=== PATIENT | female | born 1970 | race American Indian/Alaskan Native ===

== ENCOUNTER 2019-03-04 03:14 | Emergency (ER) | payer SELFPAY ==
[2019-03-04] MEDS ORDERED: NACL 0.9% 1000 ML 1,000 ML ONE (03:24)
[2019-03-04] MEDS ORDERED: NACL 0.9% 1000 ML 1,000 ML IV ONE (03:26)
--- NOTE | 2019-03-04 03:27 | Emergency Department Report ---
HPI - General Time Seen by Provider: 03/04/19 03:22 - HPI HPI: Room 1 The patient is a 48-year-old female presenting with a chief complaint of SVT. The patient has a history of SVTs and states just prior to arrival she developed palpitations associated shortness of breath. Patient denies chest pain. The patient states she is not taking any medications Location: [See above] Duration: [See above] Quality: [See above] Severity: [See above] Timing: [See above] Context: [See above] Modifying factors: [See above] Associated signs and symptoms: [see above] ED Past Medical Hx - Past Medical History Additional medical history: SVT - Surgical History Past Surgical History?: No - Family History Family history: no significant - Social History Smoking Status: Never Smoker Substance Use Type: None (denies illicit drug use) ED Review of Systems ROS: Stated complaint: SVT Other details as noted in HPI Constitutional: no symptoms reported Eyes: denies: eye pain ENT: denies: throat pain Respiratory: shortness of breath Cardiovascular: palpitations. denies: chest pain Endocrine: no symptoms reported Gastrointestinal: denies: abdominal pain Genitourinary: denies: dysuria Musculoskeletal: denies: back pain Neurological: denies: headache Physical Exam - Physical Exam Physical Exam: GENERAL: The patient is well-developed well-nourished female lying on stretcher not appearing to be in acute distress. [] HEENT: Normocephalic. Atraumatic. Extraocular motions are intact. Patient has moist mucous membranes. NECK: Supple. Trachea midline CHEST/LUNGS: Clear to auscultation. There is no respiratory distress noted. HEART/CARDIOVASCULAR: Regular. There is tachycardia. There is no gallop rub or murmur. ABDOMEN: Abdomen is soft, nontender. Patient has normal bowel sounds. There is no abdominal distention. SKIN: There is no rash. There is no edema. There is no diaphoresis. NEURO: The patient is awake, alert, and oriented. The patient is cooperative. The patient has normal speech MUSCULOSKELETAL: There is no evidence of acute injury. ED Medical Decision Making - Lab Data Result diagrams: 03/04/19 03:53 03/04/19 03:53 Laboratory Tests 03/04/19 03/04/19 03/04/19 03:53 03:53 03:53 WBC 7.2 RBC 3.99 Hgb 11.5 Hct 32.6 MCV 82 MCH 29 MCHC 35 H RDW 20.2 H Plt Count 304 Lymph % (Auto) 28.6 Ada % (Auto) 8.7 H Eos % (Auto) 0.5 Baso % (Auto) 1.0 Lymph # 2.1 Ada # 0.6 Eos # 0.0 Baso # 0.1 Seg Neutrophils % 61.2 Seg Neutrophils # 4.4 Sodium 139 Potassium 3.8 Chloride 102.5 Carbon Dioxide 21 L Anion Gap 19 BUN 14 Creatinine 0.5 L Estimated GFR > 60 BUN/Creatinine Ratio 28 Glucose 134 H Calcium 9.3 Magnesium 1.90 Total Creatine Kinase 89 CK-MB (CK-2) 1.7 CK-MB (CK-2) Rel Index 1.9 TSH 2.300 Free T4 1.13 HCG, Qual 03/04/19 03:53 WBC RBC Hgb Hct MCV MCH MCHC RDW Plt Count Lymph % (Auto) Ada % (Auto) Eos % (Auto) Baso % (Auto) Lymph # Ada # Eos # Baso # Seg Neutrophils % Seg Neutrophils # Sodium Potassium Chloride Carbon Dioxide Anion Gap BUN Creatinine Estimated GFR BUN/Creatinine Ratio Glucose Calcium Magnesium Total Creatine Kinase CK-MB (CK-2) CK-MB (CK-2) Rel Index TSH Free T4 HCG, Qual Negative - EKG Data -: EKG Interpreted by Me Rate: tachycardia (SVT at 180 bpm) - EKG Data When compared to previous EKG there are: previous EKG unavailable Interpretation: other (EKG #2 sinus tachycardia at 102 bpm. No ischemic changes seen) - Differential Diagnosis SVT Critical care attestation.: If time is entered above; I have spent that time in minutes in the direct care of this critically ill patient, excluding procedure time. ED Disposition Clinical Impression: SVT (supraventricular tachycardia) Disposition: DC-01 TO HOME OR SELFCARE Is pt being admited?: No Does the pt Need Aspirin: No Condition: Stable Instructions: Supraventricular Tachycardia (ED) Additional Instructions: Return to the emergency department should you develop worsening symptoms, inability to tolerate food or liquids, high fever or any other concerns Referrals: KENIA CARLIN MD [Staff Physician] - 3-5 Days (Dr. Carlin is a refrigeration specialist. Please follow-up with him for further evaluation) Time of Disposition: 04:57
[2019-03-04 04:25] LABS: Basophils # (Auto) 0.1 K/mm3 (0.0-0.1); Eosinophils % (Auto) 0.5 % (0.0-4.3); Hematocrit 32.6 % (30.3-42.9); Hemoglobin 11.5 gm/dl (10.1-14.3); Lymphocytes # (Auto) 2.1 K/mm3 (1.2-5.4); Lymphocytes % (Auto) 28.6 % (13.4-35.0); Mean Corpuscular HGB Conc 35 % (30-34); Mean Corpuscular Volume 82 fl (79-97); Monocytes # (Auto) 0.6 K/mm3 (0.0-0.8); Monocytes % (Auto) 8.7 % (0.0-7.3); Platelet Count 304 K/mm3 (140-440); Red Blood Count 3.99 M/mm3 (3.65-5.03)
[2019-03-04 04:27] LABS: Red Cell Distribution Width 20.2 % (13.2-15.2)
[2019-03-04 04:44] LABS: Creatine Kinase MB 1.7 ng/mL (0.0-4.0)
[2019-03-04 04:45] LABS: BUN/Creatinine Ratio 28; Blood Urea Nitrogen 14 mg/dL (7-17); Calcium 9.3 mg/dL (8.4-10.2); Hemolysis Index 6
[2019-03-04 04:51] LABS: Free T4 (Free Thyroxine) 1.13 ng/dL (0.76-1.46)
[2019-03-04 05:32] VITALS: BP 139/77
== END 2019-03-04 05:32 | disposition home or self-care (01) ==
LOC: ED 03:14
DX: I47.1 Supraventricular tachycardia (principal)
CPT/HCPCS: 36415; 80048; 82550; 82553; 83735; 84439; 84443; 84703; 85025; 93005; 93010; 99284; J0153; J7030